=== PATIENT | female | born 1990 | race Caucasian/White ===

== ENCOUNTER → 2020-08-22 | Outpatient (CLI) | payer BC | LOC: LAB 17:08 | DX: Z20.822 Contact with and (suspected) exposure to COVID-19 (principal) ==

== ENCOUNTER → 2021-03-05 | Outpatient (CLI) | payer BC ==
[2021-03-05 14:24] LABS: BASO # 0.04 K/mm3 (0.02-0.10); EOS # 0.11 K/mm3 (0.04-0.40); EOS % 1.3 % (1.0-5.0); HEMATOCRIT 39.5 % (37.0-47.0); HEMOGLOBIN 12.9 g/dL (12.5-16.0); LYMPH# 2.94 K/mm3 (1.50-4.00); MEAN CELL VOLUME 96 fl (78-100); MEAN CORPUSCULAR HEMOGLOBIN 32 pg (27-31); MEAN CORPUSCULAR HGB CONC 33 g/dL (33-37); MEAN PLATELET VOLUME 9.6 fl (7.4-10.4); MONO # 0.76 K/mm3 (0.20-0.80); NEU # 4.78 K/mm3 (1.40-6.50); PLATELET COUNT 250 K/mm3 (130-400); RED CELL DISTRIBUTION WIDTH 12.2 % (11.5-14.5); WHITE BLOOD COUNT 8.6 K/mm3 (4.8-10.8)
[2021-03-05 14:32] LABS: URINE APPEARANCE CLEAR; URINE BILIRUBIN NEGATIVE (NEGATIVE); URINE BLOOD NEGATIVE (NEGATIVE); URINE COLOR YELLOW; URINE GLUCOSE NEGATIVE (NEGATIVE); URINE KETONE NEGATIVE (NEGATIVE); URINE LEUKOCYTE ESTERASE NEGATIVE (NEGATIVE); URINE NITRATE NEGATIVE (NEGATIVE); URINE PROTEIN(semi-quant) TRACE (NEGATIVE); URINE UROBILINOGEN NORMAL (NORMAL)
[2021-03-05 14:35] LABS: ALBUMIN 4.1 g/dL (3.5-5.0)
[2021-03-05 14:36] LABS: POTASSIUM 4.2 mmol/L (3.5-5.1)
[2021-03-05 14:37] LABS: CALCIUM 9.4 mg/dL (8.3-10.5)
[2021-03-05 14:38] LABS: TOTAL PROTEIN 7.3 g/dL (6.4-8.3)
[2021-03-05 14:40] LABS: TOTAL BILIRUBIN 0.2 mg/dL (0.2-1.2)
== END ==
LOC: LAB 14:06
PROVIDERS: Nurse Practitioner Family
DX: R10.11 Right upper quadrant pain (principal)

== ENCOUNTER → 2021-03-09 | Outpatient (CLI) | payer BC | LOC: RAD 09:14 | DX: R10.11 Right upper quadrant pain (principal) ==

== ENCOUNTER 2024-04-08 13:37 | Emergency (ER) | payer OTHER, BC ==
[~2024-04-08] VITALS: Ht 165.1 cm; Wt 68.2 kg
[2024-04-08] MEDS ORDERED: REXULTI2 MG PO (13:44)
[2024-04-08] MEDS ORDERED: MIXED AMPHETAMI30 M1 PO (13:44)
[2024-04-08 14:05] LABS: BASO # 0.03 K/mm3 (0.02-0.10); EOS # 0.05 K/mm3 (0.04-0.40); EOS % 0.4 % (1.0-5.0); HEMATOCRIT 37.1 % (37.0-47.0); LYMPH# 1.09 K/mm3 (1.50-4.00); MEAN CELL VOLUME 98 fl (78-100); MEAN CORPUSCULAR HEMOGLOBIN 32 pg (27-31); MEAN CORPUSCULAR HGB CONC 32 g/dL (33-37); MEAN PLATELET VOLUME 9.6 fl (7.4-10.4); MONO # 0.84 K/mm3 (0.20-0.80); NEU # 11.42 K/mm3 (1.40-6.50); PLATELET COUNT 234 K/mm3 (130-400); RED CELL DISTRIBUTION WIDTH 12.6 % (11.5-14.5); WHITE BLOOD COUNT 13.5 K/mm3 (4.8-10.8)
[2024-04-08 14:13] LABS: CALCIUM 8.7 mg/dL (8.3-10.5)
[2024-04-08 14:15] LABS: TOTAL PROTEIN 6.7 g/dL (6.4-8.3)
[2024-04-08 14:17] LABS: TOTAL BILIRUBIN 0.3 mg/dL (0.2-1.2)
[2024-04-08] MEDS ORDERED: Iohexol 350 - 100 ML VIAL IV ONE (15:02)
[2024-04-08] MEDS ORDERED: NS 100 ML IV SCH (15:02)
[2024-04-08 16:00] VITALS: BP 98/69
== END 2024-04-08 16:14 ==
LOC: ED 13:37
PROVIDERS: Physician Assistant
DX: S05.11XA Contusion of eyeball and orbital tissues, right eye, initial encounter (principal); S90.32XA Contusion of left foot, initial encounter; S90.31XA Contusion of right foot, initial encounter; S10.0XXA Contusion of throat, initial encounter; S60.019A Contusion of unspecified thumb without damage to nail, initial encounter; Y04.0XXA Assault by unarmed brawl or fight, initial encounter
CPT/HCPCS: Q9967